=== PATIENT | male | born 1990 | race Caucasian/White ===

== ENCOUNTER 2024-09-02 10:33 | Emergency (ER) | payer SELFPAY ==
[2024-09-02 10:37] VITALS: BP 128/85
[2024-09-02 11:18] VITALS: BMI 19.4
[2024-09-02 11:23] LABS: % Basophils 0.2 % (0-2); % Immature Granulocytes 0.3 % (0-0.5); % Lymphocytes 11.4 % (20.5-51.1); % Monocytes 4.4 % (1.7-9.3); % Neutrophils 83.7 % (42.2-75.2); Absolute Lymphocytes 1.2 10^3/uL (1.2-3.4); Absolute Monocytes 0.5 10^3/uL (0.1-0.6); Hemoglobin 16.7 g/dL (13.0-18.0); Mean Corp Hgb Conc. 35.5 g/dL (33.0-37.0); Mean Corpuscular Hgb 30.9 pg (27.0-31.0); Mean Corpuscular Volume 86.9 fL (80.0-94.0); Mean Platelet Volume 9.8 fL (7.4-10.4); Nucleated Red Blood Cells % 0 % (-); Platelet Count 239 10^3/uL (130-400); Red Blood Cell Count 5.41 10^6/uL (4.70-6.10); Red Cell Dist. Width 11.9 % (11.5-14.5); White Blood Cell Count 10.8 10^3/uL (4.8-10.8)
[2024-09-02 11:27] LABS: Urine Albumin 2+ (Neg - Trace); Urine Bilirubin Negative (Negative); Urine Character Clear (Clear); Urine Color Yellow; Urine Glucose Negative (Negative); Urine Ketone 3+ (Negative); Urine Leukocyte Negative (Negative); Urine Nitrite Negative (Negative); Urine Occult Blood Negative (Negative); Urine Specific Gravity 1.015 (<1.030); Urine Urobilinogen Negative (Neg - 1+); Urine pH 6.5 (5.0-9.0)
[2024-09-02 11:38] LABS: ALT (SGPT) 19 U/L (0-50); AST (SGOT) 21 U/L (17-59); Alkaline Phosphatase 60 U/L (38-126); Blood Urea Nitrogen 22 mg/dl (9-20); Calcium 9.8 mg/dl (8.4-10.2); Carbon Dioxide 29 mmol/L (22-30); Chloride 98 mmol/L (98-107); Estimated Creatinine Clearance 99 ml/min; Glucose 107 mg/dl (70-99); Lipase 36 U/L (23-300); Potassium 3.8 mmol/L (3.5-5.1); Sodium 137 mmol/L (135-145); Total Bilirubin 1.3 mg/dl (0.2-1.3); Total Protein 7.7 g/dl (6.3-8.2); eGFR > 60.00
--- NOTE | 2024-09-02 12:04 | ED.GENMED ---
History of Present Illness
General
Chief Complaint: Abdominal Pain
Time Seen by Provider: 09/02/24 11:16
History of Present Illness
History of Present Illness:
33-year-old male with history of gastroparesis presents to the emergency department for evaluation of nausea vomiting and chills for the past 2 to 3 days. Reports 15-20 episodes of vomiting daily, the last several episodes have been blood-tinged.
Reports scant diarrhea, as well as generalized abdominal pain. Went to urgent care prior to arrival and had rapid lab evaluation showing mild leukocytosis thus was sent to the ED for further evaluation.
Review of Systems
Review of Systems
Allergies reviewed?: Yes
All Other Systems: ROS reviewed and negative except as documented in HPI and ROS
Phy Exam
Physical Exam
Physical Exam:
GEN: Well appearing, NAD, WDWN
HEENT: Oral mucosa moist, no scleral icterus
Cardiac: Regular rate
Lung: No respiratory distress, no tachypnea
Abdomen: Soft, tender to palpation in all 4 quadrants with no rigidity
MSK: No gross deformity or injuries
Skin: Good color, no pallor or jaundice, no rashes
Neuro: AO x3, moves all extremities freely
Psych: Calm, cooperative
Course
Orders/Labs/Results
Orders:
Orders
09/02/24 11:16
Complete Blood Count/With Diff Urgent
Comprehensive Metabolic Panel Urgent
Lipase Urgent
Urinalysis Reflex To Culture Urgent
Date Specimen was Collected: 09/02/24
Time Specimen was Collected: 11:15
Urine Microscopic Reflex Cult Urgent
09/02/24 12:02
Metoclopramide [Reglan] 10 mg IV NOW STA
09/02/24 12:03
Lactated Ringers [Lr] 1,000 ml IV BOLUS
Abnormal Lab Results
09/02/24
11:16
Absolute Neuts (auto) 9.0 H 10^3/uL
(1.4-6.5)
Neutrophils % 83.7 H %
(42.2-75.2)
Lymphocytes % 11.4 L %
(20.5-51.1)
BUN 22 H mg/dl
(9-20)
Glucose 107 H mg/dl
(70-99)
Urine Ketones 3+ A
(Negative)
Urine Albumin (Reflex) 2+ A
(Neg - Trace)
09/02/24 11:16
09/02/24 11:16
Vital Signs
Initial and Last Documented VS:
Initial Vital Signs
Temp Pulse Resp BP Pulse Ox
98.4 F 86 16 128/85 98
09/02/24 10:37 09/02/24 10:37 09/02/24 10:37 09/02/24 10:37 09/02/24 10:37
Last Documented Vital Signs
Temp Pulse Resp BP Pulse Ox
98.4 F 79 16 121/78 99
09/02/24 10:37 09/02/24 13:41 09/02/24 13:41 09/02/24 13:41 09/02/24 13:41
MDM/Problems Addressed
MDM/Problems Addressed:
Patient was treated with IV fluids and antiemetics with strong improvement in symptoms. Tolerating p.o. at time of discharge. Do not feel there is any indication for imaging based on his clinical presentation
*Critical Care Note
Total Time (30-74mins, 75-104mins- exclusive of procedures): Not Applicable
ED Attending Note
-
Portions of this chart may have been created with voice recognition software.� Occasional wrong word or��sound alike� substitutions may have occurred due to the inherent limitations of voice recognition software.
Discharge Plan
Departure
Patient Disposition: Home (Routine Discharge)
Date of Disposition: 09/02/24
Time of Disposition: 13:44
Patient with high blood pressure during this ER visit?: No
Discharge Problem:
Gastroenteritis
Instructions: Nausea and Vomiting, Adult (DC)
Prescriptions:
New
metoclopramide HCl [Reglan] 10 mg tablet
10 mg PO Q8HPRN PRN (Reason: nausea and vomiting) Qty: 14 0RF
Referrals:
Ismael Anderson DO [Family Provider] -
Stand Alone Forms: Return to Work
Interventions
Interventions:
*Risk Screen - Suicide Last Done: 09/02/24 10:37
*General Assessment Last Done: 09/02/24 11:18
*Neglect/Abuse Screening Last Done: 09/02/24 10:37
*ED- Fall Risk Assessment Last Done: 09/02/24 11:18
*ED COVID-19 Vaccine History Last Done: 09/02/24 11:18
*Nursing Disposition Last Done: 09/02/24 13:54
IP-Qnmelt-Jgerdzjcun Assessment Last Done: 09/02/24 11:18
Discharge Date and Time
Discharge Date/Time: 09/02/24 13:58
Print Language: [id number]
[2024-09-02] MEDS: LR 1000 IV (12:06)
[2024-09-02] MEDS: REGLAN 10 MG IV (12:07)
[2024-09-02 13:41] VITALS: BP 121/78
[2024-09-02 13:49] LABS: Urine Mucus Many
[2024-09-02 13:50] LABS: Urine Squamous Cell 0-2 /LPF (Few)
[2024-09-02 13:51] LABS: Urine Amorphous Seen
[2024-09-02 13:52] LABS: Urine Red Blood Cell 0-2 /HPF (0-2); Urine White Cell 0-2 /HPF (0-5)
== END 2024-09-02 13:58 | disposition home or self-care (01) ==
LOC: EMR 10:33
PROVIDERS: EMERGENCY PHYSICIAN Emergency Medicine; FAMILY PHYSICIAN Family Medicine
DX: K52.9 Noninfective gastroenteritis and colitis, unspecified (principal); D72.829 Elevated white blood cell count, unspecified; R19.7 Diarrhea, unspecified; R11.2 Nausea with vomiting, unspecified; K31.84 Gastroparesis
CPT/HCPCS: 99284; 96374; 96361; 80053; 81003; 81015; 83690; 85025